=== PATIENT | female | born 2000 | race Hispanic/Latino ===

== ENCOUNTER 2021-12-16 11:46 | Inpatient (IN) | payer BC, OTHER ==
[2021-12-16] MEDS ORDERED: Lidocaine 1% (PF) 30 ML VIAL SC PRN (12:12)
[2021-12-16] MEDS ORDERED: Ibuprofen 800 MG TAB PO PRN (12:12)
[2021-12-16] MEDS ORDERED: Ondansetron PF 4 MG/2 ML Vial IVP PRN (12:12)
[2021-12-16] MEDS ORDERED: Promethazine HCl 25 MG/ML VIAL IM PRN ×2 (12:12→22:21)
[2021-12-16] MEDS ORDERED: Misoprostol 200 MCG TAB PR PRN (12:12)
[2021-12-16] MEDS ORDERED: hydrALAZINE 20 MG/ML VIAL SLOW IVP PRN ×2 (12:12→22:21)
[2021-12-16] MEDS ORDERED: NS w/ Oxytocin 30 units 500 ML IV SCH ×2 (12:15→22:21)
[2021-12-16] MEDS ORDERED: Lactated Ringer's 1,000 ML IV SCH (12:15)
[2021-12-16 13:34] LABS: Hemoglobin 12.6 g/dL (12.0-15.5); Mean Corpuscular HGB CONC 34.3 g/dL (32.0-36.0); Mean Corpuscular Hemoglobin 30.3 pg (27.0-33.0); Mean Corpuscular Volume 88.2 fl (81.6-98.3); Mean Platelet Volume 11.4 fl (7.4-10.4); Platelet Count 228 10x3/uL (150-450); RBC Distribution Width 13.1 % (11.5-14.5); Red Blood Cell (RBC) Count 4.16 10x6/uL (3.90-5.03); White Blood Cell (WBC) Count 8.2 10x3/uL (3.5-10.5)
[2021-12-16 13:53] LABS: Hep B Surf Ag Non-Reactive S/CO (NonReactive); Syphilis Antibody Nonreactive (Nonreactive); Syphilis Antibody Index 0.05 S/CO (<1.00 Non-Reactive)
[2021-12-16 13:54] LABS: HBSAg Index 0.13 S/CO (0-0.99)
[2021-12-16 15:11] VITALS: BMI 23.8
[2021-12-16 16:20] LABS: SARS-CoV-2 NAA Rapid Test Not Detected (NotDetected)
[2021-12-16] MEDS ORDERED: Benzocaine-Menthol 82.5 ML CAN TOP PRN (22:21)
[2021-12-16] MEDS ORDERED: Misoprostol 200 MCG TAB VAG PRN (22:21)
[2021-12-16] MEDS ORDERED: HYDROcodone/Acetaminophen 5/325 mg Tablet PO PRN ×2 (22:21)
[2021-12-16] MEDS ORDERED: Boostrix 0.5 ML (Tdap) VIAL IM ONE (22:21)
[2021-12-16] MEDS ORDERED: Bisacodyl 10 MG SUPP PR PRN (22:21)
[2021-12-16] MEDS ORDERED: Milk Of Magnesia 30 ML UDCUP PO PRN (22:21)
[2021-12-16] MEDS ORDERED: Ibuprofen 800 MG TAB PO SCH (22:30)
[2021-12-16] MEDS ORDERED: Docusate 100 MG CAP PO SCH (22:30)
[2021-12-16] MEDS: Ibuprofen 800 MG TAB PO SCH ×2 (23:20→23:21)
[2021-12-17] MEDS: Ibuprofen 800 MG TAB PO SCH ×3 (04:01→21:51)
[2021-12-17] MEDS: Ferrous Sulfate 325 MG TAB PO SCH ×2 (08:00→12:37)
[2021-12-17] MEDS: Docusate 100 MG CAP PO SCH ×2 (09:00→21:51)
[2021-12-17] MEDS: Prenatal Vitamin 1 TAB PO SCH (09:00)
[2021-12-18] MEDS: Ibuprofen 800 MG TAB PO SCH (05:17)
[2021-12-18] MEDS: Ferrous Sulfate 325 MG TAB PO SCH (06:57)
[2021-12-18 07:17] VITALS: BP 108/55; TEMP 98.7
[2021-12-18] MEDS: Docusate 100 MG CAP PO SCH (08:36)
[2021-12-18] MEDS: Prenatal Vitamin 1 TAB PO SCH (08:36)
== END 2021-12-18 13:21 | disposition home or self-care (01) | DRG 807 ==
LOC: CSHLD/OP 11:46 → CSHLD 16:18 → CSHPP 21:45
PROVIDERS: ADMIT Obstetrics & Gynecology; ATTEND Obstetrics & Gynecology
PROC: 10E0XZZ Delivery of Products of Conception, External Approach (ICD-10-PCS; principal; 2021-12-16)
DX: O80 Encounter for full-term uncomplicated delivery (principal); Z37.0 Single live birth; Z3A.38 38 weeks gestation of pregnancy; Z20.822 Contact with and (suspected) exposure to COVID-19
CPT/HCPCS: 85027; 86780; 86850; 86900; 86901; 87340; 99285; J2001; J2590; U0002